=== PATIENT | male | born 1955 ===

== ENCOUNTER 2017-06-16 07:50 | Day surgery (SDC) | payer BC ==
[~2017-06-16] VITALS: Ht 167.6 cm; Wt 77.1 kg
[2017-06-16] VITALS (11 sets, daily range): BP systolic 117–144; BP diastolic 70–82
--- NOTE | 2017-06-16 06:44 | Anethesia Preoperative Eval ---
Anesthesia Pre-op PMH/ROS General Date of Evaluation: Jun 16, 2017 Time of Evaluation: 06:43 Anesthesiologist: camilo Mallampati Score Class I : Soft palate, uvula, fauces, pillars visible Class II: Soft palate, uvula, fauces visible Class III: Soft palate, base of uvula visible Class IV: Only hard plate visible Surgeon: pamella Diagnosis: colon screening Surgical Procedure: colonoscopy Anesthesia History: none Allergies: Coded Allergies: No Known Allergies (Unverified , 06/15/17) NETTIE DEJESUS Jun 16, 2017 06:44
[~2017-06-16 07:50] MED LIST: Atropine Inj 1mg/10ml Syr IV PRN; DiphenhydrAMINE 50mg/ml Inj IVP PRN; LR 1000ml 1,000 ML IVLG SCH; Midazolam 2mg/2ml Inj IVP PRN; fentaNYL 100 mcg/2 mL IV PRN
--- NOTE | 2017-06-16 08:47 | Short Stay Surgery H&P ---
History of Present Illness History of Present Illness Chief Complaint Screening colon. SALVATORE Carnes is a 62 year old male who was admitted on for Colon Screening Patient History Allergies: Coded Allergies: No Known Allergies (Unverified , 06/15/17) PAST MEDICAL HISTORY: Past Surgeries: (1) Inguinal hernia Social History: Review of Systems Cardiovascular: Reports: no symptoms Respiratory: Reports: no symptoms Skeletal: Reports: no symptoms Gastrointestinal: Reports: no symptoms Genitourinary: Reports: no symptoms Neurologic: Reports: no symptoms Endocrine: Reports: no symptoms Physical Exam Skin: normal HENT: normal Heart: normal Lungs: normal Abdomen: normal Extremities: normal Genitourinary: normal Plan Plan of Care Total colonoscopy Preop Interventions None Summary of Findings see the reports Final Diagnosis: Attestation Are the patient's medical conditions optimized for surgery? Attestation Response: yes ANCA MONTERO Jun 16, 2017 08:47
--- NOTE | 2017-06-16 08:49 | Pre-Procedure Note/Attestation ---
Pre-Procedure Note/Attestation Complete Prior to Procedure Planned Procedure: left Procedure Narrative: endoscopic exam of the colon Indications for Procedure Pre-Operative Diagnosis: R/O colon polyp/cancer Attestation I attest that I discussed the nature of the procedure; its benefits; risks and complications; and alternatives (and the risks and benefits of such alternatives ), prior to the procedure, with the patient (or the patient's legal telemarketing representative). I attest that, if there was a reasonable possibility of needing a blood transfusion, the patient (or the patient's legal telemarketing representative) was given the [facility] standardized written summary, pursuant to the Kareem Dave Blood Safety Act ([place] Health and Safety Code # 1645, as amended). I attest that I re-evaluated the patient just prior to the surgery and that there has been no change in the patient's H&P, except as documented below: KYLAH,SAID Jun 16, 2017 08:49
[2017-06-16] MEDS ORDERED: NKM (09:18)
--- NOTE | 2017-06-16 09:19 | Anethesia Preoperative Eval ---
Anesthesia Pre-op PMH/ROS General Date of Evaluation: Jun 16, 2017 Time of Evaluation: 09:13 Anesthesiologist: Irma ASA Score: ASA 1 Mallampati Score Class I : Soft palate, uvula, fauces, pillars visible Class II: Soft palate, uvula, fauces visible Class III: Soft palate, base of uvula visible Class IV: Only hard plate visible Mallampati Classification: Class I Surgeon: Alfredo Diagnosis: colon screening Surgical Procedure: colonoscopy Anesthesia History: none Family History: no anesthesia problems Allergies: Coded Allergies: No Known Allergies (Unverified , 06/15/17) Medications: see eMAR Past Medical History Cardiovascular: Denies: HTN, CAD, [place], valve dz, arrhythmia, other Pulmonary: Denies: asthma, COPD, [place], other Gastrointestinal/Genitourinary: Reports: GERD, other - Diverticulosis, Inguinal hernia, Neurologic/Psychiatric: Denies: dementia, CVA, depression/anxiety, TIA, other Endocrine: Denies: DM, hypothyroidism, steroids, other HEENT: Denies: cataract (L), cataract (R), glaucoma, KNIK (L), KNIK (R), other Hematology/Immune: Denies: anemia, DVT, bleeding disorder, other Musculoskeletal/Integumentary: Denies: OA, RA, DJD, DDD, edema, other Anesthesia Pre-op Phys. Exam Physician Exam Constitutional: NAD Neurologic: CN 2-12 intact Cardiovascular: RRR Respiratory: CTA Gastrointestinal: S/NT/ND Airway Exam Mallampati Score: Class I MO: full ROM: full Teeth: intact Dentures: no upper, no lower Anesthesia Pre-op A/P Labs chart reviewed Risk Assessment & Plan Assessment: A&Ox3 Plan: MAC Status Change Before Surgery: No Pre-Antibiotics Given Within 1 Hr of Incision: No Cathy Solis CRNA Jun 16, 2017 09:19
[2017-06-16] MEDS ORDERED: Midazolam 2mg/2ml Inj ONE (09:30)
[2017-06-16] MEDS ORDERED: LR 1000ml ONE (09:30)
[2017-06-16] MEDS ORDERED: Lidocaine 1% MPF 10mg/ml 5ml ONE (09:30)
[2017-06-16] MEDS ORDERED: Propofol 200mg/20ml IV ONE (09:30)
--- NOTE | 2017-06-16 09:30 | Immediate Post-Op Evaluation ---
Immediate Post-Op Evalulation Immediate Post-Op Evalulation Procedure: Colonoscopy Date of Evaluation: Jun 16, 2017 Time of Evaluation: 09:57 IV Fluids: LR 300ml Blood Products: 0 Estimated Blood Loss: 0 Urinary Output: 0 Blood Pressure Systolic: 131 Blood Pressure Diastolic: 82 Pulse Rate: 58 Respiratory Rate: 16 O2 Sat by Pulse Oximetry: 99 Temperature (Fahrenheit): 97 Pain Score (1-10): 0 Nausea: No Vomiting: No Complications none Patient Status: awake, reacts, patent Hydration Status: adequate Given Within 1 Hr of Incision: Cathy Daley CRNA Jun 16, 2017 09:30
--- NOTE | 2017-06-16 09:30 | 48 Hour Post Anesthesia Eval ---
Post Anesthesia Evaluation Procedure: Colonoscopy Date of Evaluation: Jun 16, 2017 Time of Evaluation: 10:10 Blood Pressure Systolic: 130 0: 80 Pulse Rate: 60 Respiratory Rate: 18 Temperature (Fahrenheit): 97 O2 Sat by Pulse Oximetry: 100 Airway: patent Nausea: No Vomiting: No Pain Intensity: 0 Hydration Status: adequate Cardiopulmonary Status: WNL Mental Status/LOC: patient returned to baseline Follow-up care needed: patient intructions given Cathy Solis CRNA Jun 16, 2017 09:30
--- NOTE | 2017-06-16 09:51 | Endoscopy Procedure Note ---
Endoscopy Procedure Note Indication for Procedure: Screening colon Procedures Performed: colonoscopy - Minimal internal hemorrhoids with rare left colonic diverticulosis. Highly redundant left colon, otherwise normal colonoscopy. Specimen: none Pt Tolerated Procedure Well: Yes Estimated Blood Loss: none Anesthesiologist: Ms. Morgan, nurse line maintainer Anesthesia: moderate sedation Medication Given: see anesthesia record Implant(s) used?: No 50 yrs or older w/o bx or poly: Yes 10yrs. F/U not recommended: Yes If not recommended, why?: Med reason:<3 yrs.: System Reason:<3 yrs.: Last colonoscopy >= to 3yrs: Dania MONTERO,SAID Jun 16, 2017 09:51
--- NOTE | 2017-06-16 09:53 | Discharge Instructions ---
Discharge Instructions Discharge Instructions Follow up with: No need to follow in office post procedure For Congestive Heart Failure Reminder Report to your physician any weight gain of 5 pounds or more in one week. ANCA MONTERO Jun 16, 2017 09:53
--- NOTE | 2017-06-16 19:30 | Operative Note - Dictated ---
DATE OF OPERATION: 06/16/2017 PROCEDURE PERFORMED: Screening total colonoscopy. PREOPERATIVE DIAGNOSIS: Screening colonoscopy. POSTOPERATIVE DIAGNOSES: 1. Minimal internal hemorrhoid. 2. Mild diverticulosis of the left colon with high redundancy of the rectosigmoid area, otherwise, complete normal study up to the ileocecal valve as examined. SURGEON: Vivienne Fuentes M.D. MEDICATION USED: Per nurse sterile processing tech, Ms. Morgan. INSTRUMENT: GIF Olympus videocolonoscope. DESCRIPTION OF PROCEDURE: The patient, after arriving in endoscopy unit, was told about risks and benefits of the procedure. The patient accepted and signed the informed consent. At this time, he was put on the left lateral decubitus position. After adequate IV sedation, the scope was gently passed through the anal area, which revealed evidence of minimal hemorrhoidal tag and with retroflexion maneuver, which was applied in the rectum, revealed very small internal hemorrhoids, which were not friable. The rest of the rectum looked normal. At this time, the scope was gradually advanced into highly redundant left colon revealing occasional diverticular lesions of no great significance. There was no any evidence of tumor, polyp, inflammatory process, stricture, etc. The scope gradually was passed towards the left splenic flexure, from there into the transverse colon, and subsequently it reached to the hepatic flexure in the right colon all the way to the base of the cecum. All these areas remained to be completely normal. The colon cleanup was adequate. At this point, after reaching to the base of the cecum, within 7 minutes, the scope was gradually pulled out and re-evaluation of colon did not reveal any other pathology. The patient tolerated the procedure well and left the endoscopy room in a good condition. Vivienne Fuentes M.D. DR: BAYRON JOB#: [id number] CC:
== END 2017-06-16 11:10 | disposition home or self-care (01) ==
LOC: GAS 07:50
DX: Z12.11 Encounter for screening for malignant neoplasm of colon (principal); K64.8 Other hemorrhoids; K57.30 Diverticulosis of large intestine without perforation or abscess without bleeding; K21.9 Gastro-esophageal reflux disease without esophagitis
CPT/HCPCS: 45378; J2250; J2704; J7120; 94003; 94150